=== PATIENT | female | born 1975 | race Caucasian/White ===

== ENCOUNTER 2017-06-16 09:01 | Outpatient (CLI) | payer OTHER ==
[2017-06-16 10:04] LABS: Hematocrit 39.2 % (30.3-42.9); Hemoglobin 13.3 gm/dl (10.1-14.3); Mean Corpuscular HGB Conc 34 % (30-34); Mean Corpuscular Hemoglobin 29 pg (28-32); Mean Corpuscular Volume 86 fl (79-97); Platelet Count 265 K/mm3 (140-440); Red Blood Count 4.58 M/mm3 (3.65-5.03); Red Cell Distribution Width 13.2 % (13.2-15.2)
[2017-06-16 10:22] LABS: Alanine Aminotransferase 12 units/L (7-56); Albumin 3.9 g/dL (3.9-5); BUN/Creatinine Ratio 23; Blood Urea Nitrogen 9 mg/dL (7-17); Calcium 8.8 mg/dL (8.4-10.2); Hemolysis Index 28
== END 2017-06-16 09:02 | disposition home or self-care (01) ==
LOC: LAB 09:01
PROVIDERS: ATTEND Surgery
DX: R10.13 Epigastric pain (principal)
CPT/HCPCS: 36415; 80053; 82150; 85027

== ENCOUNTER 2017-06-25 10:49 | Outpatient (CLI) | payer OTHER ==
--- NOTE | 2017-06-25 14:39 | Ultrasound Report ---
ULTRASOUND ABDOMEN LIMITED INDICATION: Epigastric pain. COMPARISON: None similar at this institution. FINDINGS: Right upper quadrant sonography demonstrates diffuse hepatic echogenic coarsening with grossly preserved contours. No definite focal suspicious lesions or biliary dilatation, to the extent assessed. Right hepatic lobe approximately 19 cm in midclavicular length. No gallstones or pericholecystic fluid. Slight gallbladder sludge not excluded versus technical artifact. Gallbladder wall thickness is 1.8 mm. Common bile duct is 3.5 mm. Normal imaged pancreas, aorta and IVC. Nonhydronephrotic 10.3 x 5.3 x 5.5 cm right kidney with cortical thickness of 1.1 cm. CONCLUSION: No acute abdominal sonographic abnormality with fatty, mildly enlarged liver, as described. Please correlate. Thank you for the opportunity to participate in this patient's care.
== END 2017-06-25 10:50 | disposition home or self-care (01) ==
LOC: US 10:49
PROVIDERS: ATTEND Surgery
DX: K76.0 Fatty (change of) liver, not elsewhere classified (principal)
CPT/HCPCS: 76705

== ENCOUNTER 2017-07-14 09:11 | Outpatient (CLI) | payer OTHER ==
--- NOTE | 2017-07-14 11:29 | Nuclear Medicine Report ---
HEPATOBILIARY SCAN: Examination performed with 5 mCi technetium 99m Choletec. History: Abdominal pain. Findings: Following the injection of the radionuclide, serial scanning was obtained over the right upper quadrant. Initial imaging of the liver demonstrates a relatively normal activity pattern. Progressive concentration of the radionuclide in the bile ducts, with filling of both the gallbladder and small bowel, is identified within a normal time period. IMPRESSION: Normal biliary system.
== END 2017-07-14 09:12 | disposition home or self-care (01) ==
LOC: NM 09:11
PROVIDERS: ATTEND Surgery
DX: R10.84 Generalized abdominal pain (principal)
CPT/HCPCS: 78226; A9537